=== PATIENT | female | born 1935 | race Caucasian/White ===

== ENCOUNTER 2016-07-29 15:32 | Inpatient (IN) ==
[2016-07-29] MEDS ORDERED: SODIUM CHLORIDE 0.9% 500 ML IV STA (18:36)
--- NOTE | 2016-07-29 18:53 | Emergency Department Note ---
Sarah Nuñez Hilary, am scribing for, and in the presence of, Kris Zuniga MD 18:41. Efrain Nuñez Phillip K, MD, personally performed the services described in this documentation, ascribed by Muna Smith in my presence, and it is both accurate and complete [id number] . Arrival - Arrival ED Nursing Triage Note: PT BECAME DIZZY AND LIGHTHEADED WHILE PLANT SHOPPING AT [employer]. PT STATES SHE DROVE HERSELF HOME. ONCE HOME SHE WALKED OVER TO CHECK HER GLUCOSE AND SHE HAD SYNCOPAL EPISODE, HITTING HER HEAD ON THE FLOOR. VERY SMALL WOUND TO BACK OF HEAD AND SMALL LACERATION TO BOTTOM LIP. PT STATES HER GLUCOSE WAS 161MG/DL AFTER THE FALL. Mode of Arrival: Ambulatory Limitations: No Limitations Source: Patient, RN Notes Reviewed - History of Present Illness Onset (ago): minute(s) <Kris Zuniga - Last Filed: 07/29/16 18:53> <Taurus Ramirez - Last Filed: 07/29/16 21:47> - Arrival Chief Complaint: Syncope Stated Complaint: Fell and hit head after check blood sugar - History of Present Illness HPI Narrative: Pt is a 80 y/o female presenting to the ED with c/o of dizzy and lightheaded- ness onset of earlier this afternoon. She says that she got dizzy and lightheaded while shopping and that after sitting down she fell better and drove herself home, once she was home she went to check her glucose levels and that is when she had a syncopal episode and hit her head on the concrete. Patient denied LOC but said her "vision went black". She confirms nausea, diaphoresis, vision change, laceration on lip, "goose egg" on back of head but denies chest pain, SOB or vomiting. She also said she has had an intermittent TY for 3-4 weeks only on her left side. No other complaints or problems stated in the ED. (Muna Smith) Pt is a 80 y/o female presenting to the ED with c/o of dizzy and lightheaded- ness onset of earlier this afternoon. She says that she got dizzy and lightheaded while shopping and that after sitting down she fell better and drove herself home, once she was home she went to check her glucose levels and that is when she had a syncopal episode and hit her head on the concrete. Patient denied LOC but said her "vision went black". She confirms nausea, diaphoresis, vision change, laceration on lip, "goose egg" on back of head but denies chest pain, SOB or vomiting. She also said she has had an intermittent TY for 3-4 weeks only on her left side. No other complaints or problems stated in the ED. (Kris Zuniga) Allergies/Adverse Reactions: Allergies Allergy/AdvReac Type Severity Reaction Status Date / Time cephalexin [From Keflex] Allergy Unknown/Unable Verified 07/29/16 15:47 to obtain ciprofloxacin [From Cipro] Allergy Unknown/Unable Verified 07/29/16 15:47 to obtain Penicillins Allergy Unknown/Unable Verified 07/29/16 15:47 to obtain Sulfa (Sulfonamide Allergy Unknown/Unable Verified 07/29/16 15:47 Antibiotics) to obtain Home Medications: Home Medications Medication Instructions Recorded Confirmed Type Amitriptyline [Elavil] 50 mg PO BEDTIME 09/14/15 07/29/16 History Aspirin [Ecotrin] 81 mg PO DAILY 09/14/15 07/29/16 History Clopidogrel [Plavix] 75 mg PO DAILY 09/14/15 07/29/16 History Furosemide Tab [Lasix Tab] 40 mg PO DAILY 09/14/15 07/29/16 History Insulin Lispro Prot/Lisp 75/25 10 unit SUBCUT TID PRN 09/14/15 07/29/16 History [HumaLOG Mix 75/25] Losartan Potassium [Cozaar] 100 mg PO DAILY 09/14/15 07/29/16 History Omeprazole 20 mg PO BID 09/14/15 07/29/16 History Potassium Chloride [Klor-Con M20] 20 meq PO DAILY 09/14/15 07/29/16 History Magnesium Oxide [Magnesium] 500 mg PO DAILY 07/29/16 07/29/16 History Review of System - Review of System 12 point system: reviewed and no additional remarkable complaints except as stated - Review of System Constitutional: Present: diaphoresis, weakness Eyes: Present: vision change ("went black") Head/Ears/Nose/Throat: Present: other ("Goose egg" on back of her head) Respiratory: Absent: respiratory distress Cardiovascular: Absent: chest pain Gastrointestinal: Present: nausea. Absent: abdominal pain, vomiting Skin: Present: other (laceration on lip from biting it) <Kris Zuniga - Last Filed: 07/29/16 18:53> Medical,Surgical,& Family Hx - Medical History Cardio: History of: Hypertension Endocrine: History of: Diabetes Mellitus (NIDDM), Dyslipidemia Gastrointestinal: History of: GERD - Surgical History Cardiac Surgeries: Sugical HX of: Femoral-Popliteal Bypass Graft, Cardiac Surgery Abdominal Surgeries: Surgical HX of: Appendectomy, Cholecystectomy Reproductive Surgeries: Surgical HX of;: Hysterectomy - Social History Smoking Status: Never smoker Frequency of Alcohol Use: None Type of Drug Use: None <Kris Zuniga - Last Filed: 07/29/16 18:53> Exam - General General appearance: alert, in no apparent distress - Head Head exam: Present: atraumatic, normocephalic, other (3/3cm hematoma on posterior occiput) - Eye Eye exam: Present: normal appearance, PERRL, EOMI - ENT ENT exam: Present: normal exam, mucous membranes moist, TM's normal bilaterally. Absent: mucous membranes dry - Neck Neck exam: Present: full ROM, trachea midline. Absent: tenderness - Chest Chest inspection: Present: symmetric chest wall rise. Absent: tenderness - Respiratory Respiratory exam: Present: normal lung sounds bilaterally. Absent: respiratory distress - Cardiovascular Cardiovascular exam: Present: regular rate, normal rhythm, normal heart sounds. Absent: murmur, rubs, gallop - Abdominal Exam Abdominal exam: Present: soft, normal bowel sounds. Absent: distention, tenderness - Extremities Exam Extremities exam: Present: full ROM, pedal edema (+1 Pedal edema bilaterally). Absent: tenderness - Back Exam Back exam: Present: full ROM. Absent: tenderness - Neurological Exam Neurological exam: Present: alert, oriented X3, CN II-XII intact. Absent: motor sensory deficit - Psychiatric Psychiatric exam: Present: normal affect, normal mood - Skin Skin exam: Present: warm, dry, intact, normal color, other (Lip Laceration). Absent: rash <Jacob Zunigaip Viviane - Last Filed: 07/29/16 18:53> Vital Signs: Vital Signs Temperature 98.0 F 07/29/16 18:13 Pulse Rate 88 07/29/16 18:30 Respiratory Rate 20 07/29/16 18:30 Blood Pressure 155/85 07/29/16 18:30 O2 Sat by Pulse Oximetry 100 07/29/16 18:30 Course <Kris Zuniga - Last Filed: 07/29/16 18:53> - Reevaluation(s) Time: 20:44 - Consultations Time: 20:46 <Taurus Ramirez - Last Filed: 07/29/16 21:47> - Reevaluation(s) Reevaluation #1: Patient reevaluated states she feels little bit better but still feels little lightheaded. Based on her story the symptoms been going on for last couple weeks getting worse today she has noted what happened she has found herself on the floor lately she has been having where she gets double vision lightheaded sweaty nauseated and today she actually passed out (Taurus Ramirez) - Consultations Consultation #1: Spoke to hospitalist will admit patient (Taurus Ramirez) Results - Labs CBC & BMP: 07/29/16 18:16 07/29/16 18:16 <Taurus Ramirez - Last Filed: 07/29/16 21:47> Disposition <Kris Zuniga - Last Filed: 07/29/16 18:53> Case discussed with: patient Time of Disposition: 21:47 <Taurus Ramirez - Last Filed: 07/29/16 21:47> Clinical Impression: Dehydration, Syncope and collapse, TIA (transient ischemic attack), Scalp contusion Disposition: Still a Patient Condition: Stable
--- NOTE | 2016-07-29 18:54 | CT Report ---
CT head/brain wo con Indication: 80-year-old female, syncope. CT BRAIN WITHOUT CONTRAST DLP: 1012 mGy*cm. One or more of the following dose reduction techniques was used: Automated exposure control, adjustment of the mA and/or kV according the patient size, or use of iterative reconstruction techniques. Comparison: 10/09/2013. Date of admission: 07/29/2016. Technique: Axial noncontrast CT images of the brain were obtained. 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 Benign basal ganglia calcifications are present. Nguyen-white junction is otherwise maintained throughout. No acute intracranial hemorrhage. No mass or mass effect. Mild patchy periventricular white matter hypodensity is present. Scalp swelling right posterior parietal region. No underlying fracture. Visualized sinuses and mastoid air cells are clear. Impression: 1. No acute intracranial pathology. 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 Mild chronic small vessel ischemic change. 2. Right posterior parietal scalp swelling. PROCEDURE INTERPRETED AT [facility] DEPARTMENT OF RADIOLOGY Final Report Signed by: Duane Way M.D.
--- NOTE | 2016-07-29 18:57 | XRay Report ---
XR chest 1V portable Indication: Shortness of breath. Chest one view: Comparison 10/09/2013. Chronic elevation right hemidiaphragm, bibasilar scarring, normal heart size and mediastinal contour and median sternotomy wires are all stable. No new infiltrates are shown. Pleural spaces remain clear. Impression: No acute cardiopulmonary disease. Chronic changes as described. PROCEDURE INTERPRETED AT [facility] DEPARTMENT OF RADIOLOGY Final Report Signed by: Duane Way M.D.
--- NOTE | 2016-07-29 19:08 | EKG Report ---
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
[2016-07-29 19:17] LABS: Basophils # 0.1 10*3/uL (0.0-0.2); Basophils % 0.9 % (0.0-0.8); Eosinophils # 0.1 10*3/uL (0.0-0.87); Eosinophils % 0.7 % (0.00-10.9); Hematocrit 38.3 VOL% (35.7-47.0); Hemoglobin 12.4 GM/DL (12.0-16.0); Immature Granulocytes % 0.5 %; Immature Granulocytes Absolute 0.04 #; Lymphocytes # 1.3 10*3/uL (1.4-4.0); Lymphocytes % 17.7 % (21.3-54.2); Mean Corpuscular HGB Conc 32.4 GM/DL (32-36); Mean Corpuscular Hemoglobin 27 PG (27-34); Mean Corpuscular Volume 82.2 FL (87-102); Mean Platelet Volume 11.5 FL (9.6-12.0); Monocytes # 0.6 10*3/uL (0.11-0.8); Monocytes % 7.9 % (1.7-12.7); Neutrophils # 5.4 10*3/uL (1.4-7.4); Neutrophils % 72.3 % (38.7-73.9); Platelet Count 224 T/CUMM (130-400); Red Blood Count 4.66 MC/CUMM (3.8-5.5); White Blood Count 7.5 T/CUMM (4-12)
[2016-07-29 19:20] LABS: Alanine Aminotransferase 21 U/L (13-56); Albumin 3.6 G/DL (3.4-5.0); Alkaline Phosphatase 144 U/L (45-117); Aspartate Amino Transferase 21 U/L (0-37); Bilirubin,Total < 0.39 MG/DL (0.2-1.0); Blood Urea Nitrogen 23 MG/DL (7-18); Calcium 8.5 MG/DL (8.5-10.1); Glucose 249 MG/DL (74-106); Magnesium 2.3 MG/DL (1.8-2.4); Osmolality,Calculated 286.7 MOS/KG (273-304); Potassium 4.2 MMOL/L (3.5-5.1); Sodium 138 MMOL/L (136-145); Total Protein 7.1 G/DL (6.4-8.3)
[2016-07-29 20:05] LABS: Apearance,Urine Slightly Hazy (Clear); Bilirubin,Urine Negative (Negative); Blood, Urine Negative (Negative); Glucose,Urine (UA) 50 mg/dL (Negative); Granular Casts,Urine 8 /LPF (0-1); Hyaline Casts,Urine 61 /LPF (0-3); Ketones,Urine Negative (Negative); Mucus,Urine Occasional /LPF (Occasional); Nitrite,Urine Negative (Negative); Protein,Urine Negative; Squamous Epithelial Cell,Urine Occasional /HPF (0-10); Urine Color Yellow (Yellow); Urine Specific Gravity 1.018 (1.001-1.035); Urine Urobilinogen < 2.0 EU/DL (0.2-1.0); WBC,Urine 1 /HPF (0-6)
[2016-07-30] MEDS ORDERED: GLUCAGON 1 MG VIAL IM PRN (00:26)
[2016-07-30] MEDS ORDERED: ONDANSETRON 4 MG/2 ML VIAL IV PRN (00:26)
[2016-07-30] MEDS ORDERED: MORPHINE 2 MG/1 ML SYRINGE IV PRN (00:26)
[2016-07-30] MEDS ORDERED: DEXTROSE 50% 25 GM/50 ML VIAL IV PRN (00:26)
[2016-07-30] MEDS ORDERED: INSULIN LISPRO PROTAMINE/LISPRO 75/25 100 UNIT/ML SUBCUT PRN (00:26)
[2016-07-30] MEDS ORDERED: ACETAMINOPHEN 325 MG TABLET PO PRN (00:26)
[2016-07-30 04:44] LABS: Basophils # 0.1 10*3/uL (0.0-0.2); Basophils % 1.1 % (0.0-0.8); Eosinophils # 0.2 10*3/uL (0.0-0.87); Eosinophils % 2.7 % (0.00-10.9); Hematocrit 36.2 VOL% (35.7-47.0); Hemoglobin 11.4 GM/DL (12.0-16.0); Immature Granulocytes % 0.3 %; Immature Granulocytes Absolute 0.02 #; Lymphocytes # 1.8 10*3/uL (1.4-4.0); Lymphocytes % 28.1 % (21.3-54.2); Mean Corpuscular HGB Conc 31.5 GM/DL (32-36); Mean Corpuscular Hemoglobin 27 PG (27-34); Mean Corpuscular Volume 85.6 FL (87-102); Mean Platelet Volume 10.9 FL (9.6-12.0); Monocytes # 0.8 10*3/uL (0.11-0.8); Monocytes % 13.2 % (1.7-12.7); Neutrophils # 3.5 10*3/uL (1.4-7.4); Neutrophils % 54.6 % (38.7-73.9); Platelet Count 192 T/CUMM (130-400); Red Blood Count 4.23 MC/CUMM (3.8-5.5); Red Cell Distribution Width 14.8 % (9.3-17.3); White Blood Count 6.4 T/CUMM (4-12)
[2016-07-30 05:06] LABS: Troponin I Only < 0.015 NG/ML (0.00-0.045)
[2016-07-30 05:13] LABS: Alanine Aminotransferase 16 U/L (13-56); Albumin 3.1 G/DL (3.4-5.0); Alkaline Phosphatase 117 U/L (45-117); Aspartate Amino Transferase 19 U/L (0-37); Bilirubin,Total < 0.39 MG/DL (0.2-1.0); Blood Urea Nitrogen 22 MG/DL (7-18); Calcium 8.4 MG/DL (8.5-10.1); Cholesterol 210 MG/DL (50-200); Glucose 149 MG/DL (74-106); HDL Cholesterol 58 MG/DL (40-60); Magnesium 2.3 MG/DL (1.8-2.4); Osmolality,Calculated 288.1 MOS/KG (273-304); Potassium 4.4 MMOL/L (3.5-5.1); Risk Ratio 3.62; Sodium 142 MMOL/L (136-145); Triglycerides 165 MG/DL (2-150)
[2016-07-30] MEDS: SODIUM CHLORIDE 0.9% 1,000 ML IV SCH (06:42)
--- NOTE | 2016-07-30 07:54 | XRay Report ---
Exam: Chest 2 views Date: July 30, 2016 at 7:21 AM Comparison: Chest one view portable July 29, 2016 Reason: Shortness of breath Findings: The cardiac silhouette is normal in size, but the patient is status post sternotomy. There is also persistent mild elevation of the right hemidiaphragm. There is minimal atelectasis or scarring at the lung bases, but no pneumothorax or pleural effusion is identified. No acute osseous process is seen. Impression: Persistent mild elevation of the right hemidiaphragm and minimal atelectasis or scarring at the lung bases. PROCEDURE INTERPRETED AT [facility] DEPARTMENT OF RADIOLOGY Final Report Signed by: Dr. Ines Rowell
--- NOTE | 2016-07-30 08:15 | Internal Med History&Physical ---
Assessment and Plan (1) Syncope and collapse Status: Acute Assessment and plan: 80-year-old female admitted to acute care * Syncope. Etiology is unclear. Probably related to orthostatic hypotension and dehydration. Will check orthostatic vital signs. We will start her on IV fluids. Will check echocardiogram and carotid ultrasound. CT brain was negative * Coronary artery disease. Stable and asymptomatic * Diabetes. Will check Accu-Cheks and keep her on a sliding scale * Peripheral vascular disease. Stable * Will watch her closely. Discussed with patient Current Visit: Yes (2) Diabetes Status: Acute Current Visit: Yes (3) Hypertension Status: Acute Current Visit: Yes (4) Peripheral vascular disease Status: Acute Current Visit: Yes (5) Coronary artery disease Status: Acute Current Visit: Yes History of Present Illness Chief complaint: Syncopal episode History of present illness: Ms. Jose is a 80 year old female with history of multiple medical problems including coronary artery disease, diabetes, hypertension, peripheral vascular disease, history of osteomyelitis who presented to the emergency room after a syncopal episode. Patient was shopping at a [employer] when she got extremely dizzy and lightheaded. She drove herself home. She went to check her blood glucose and had a syncopal episode. She hit her head on the floor. She had a small wound to the back of her head. He also suffered a laceration to the bottom lip. Patient was brought to the emergency room where she was evaluated. She is also complaining of headache on the left side of the head which has been going on for a few weeks off and on. She denies any previous syncopal episodes. She has taken occasional extra Lasix for fluid in her legs. She gets dizzy when she bends over and gets up. Denies any with dizziness when she is lying or sitting. She denies any nausea vomiting or diarrhea. She denies any fever or chills. Patient lives alone at home. She is a . No history of smoking or alcohol use Home Medications Medication Instructions Recorded Confirmed Type Amitriptyline [Elavil] 50 mg PO BEDTIME 09/14/15 07/29/16 History Aspirin [Ecotrin] 81 mg PO DAILY 09/14/15 07/29/16 History Clopidogrel [Plavix] 75 mg PO DAILY 09/14/15 07/29/16 History Furosemide Tab [Lasix Tab] 40 mg PO DAILY 09/14/15 07/29/16 History Insulin Lispro Prot/Lisp 10 unit SUBCUT TID PRN 09/14/15 07/29/16 History [HumaLOG Mix ] Losartan Potassium [Cozaar] 100 mg PO DAILY 09/14/15 07/29/16 History Omeprazole 20 mg PO BID 09/14/15 07/29/16 History Potassium Chloride [Klor-Con M20] 20 meq PO DAILY 09/14/15 07/29/16 History Magnesium Oxide [Magnesium] 500 mg PO DAILY 07/29/16 07/29/16 History Allergies Allergy/AdvReac Type Severity Reaction Status Date / Time cephalexin [From Keflex] Allergy Unknown/Unable Verified 07/29/16 15:47 to obtain ciprofloxacin [From Cipro] Allergy Unknown/Unable Verified 07/29/16 15:47 to obtain Penicillins Allergy Unknown/Unable Verified 07/29/16 15:47 to obtain Sulfa (Sulfonamide Allergy Unknown/Unable Verified 07/29/16 15:47 Antibiotics) to obtain Medical,Surgical,& Family Hx - Medical History Cardio: History of: CAD, Hypertension, PVD Neurology: History of: Peripheral Neuropathy Endocrine: History of: Diabetes Mellitus (NIDDM), Dyslipidemia Gastrointestinal: History of: GERD - Surgical History Cardiac Surgeries: Sugical HX of: Femoral-Popliteal Bypass Graft, Cardiac Surgery (CABG 1990) Abdominal Surgeries: Surgical HX of: Appendectomy, Cholecystectomy Reproductive Surgeries: Surgical HX of;: Hysterectomy - Social History Smoking Status: Never smoker Frequency of Alcohol Use: None Type of Drug Use: None Marital Status: Lives With:: Alone Functional capacity: independent ambulation (CABG 93) 12 point system: reviewed and no additional remarkable complaints except as stated (As mentioned in HPI) Exam - Constitutional Vitals: Period Temp Pulse Resp BP Sys/Cantu Pulse Ox Last 24 Hr 97.2 F-98.3 F 64-74 16-18 116-151/58-85 94-98 Exam: Examination: GENERAL: NAD. HEENT: PERRLA. EOMI. Mucous membranes are moist. Laceration on the lower lip. Small hematoma on the posterior occipital area NECK: Neck is supple. No JVD. No carotid bruit. No thyromegaly. CVS: Regular rate and rhythm. S1 and S2 are normal. RESPIRATORY: Lungs are clear. No rales or rhonchi. ABDOMEN: Soft and nontender. Bowel sounds are present. No hepatosplenomegaly. EXT: No edema. Peripheral pulses are present. Right second toe is overlapping first toe. Healing wound on the fourth toe TRANSFORMATION ANALYST: Patient is awake, alert and oriented to time place and person. Cranial nerves II through XII are grossly intact. Motor strength is 5 over 5 both upper and lower extremities. SKIN: Warm and dry. MSK: No obvious deformity. Results - Labs CBC & BMP: 07/30/16 04:35 07/30/16 04:35 Lab Results: I have reviewed the past 24 hour labs
[2016-07-30] MEDS ORDERED: PANTOPRAZOLE 40 MG TABLET PO SCH (09:00)
--- NOTE | 2016-07-30 09:17 | Ultrasound Report ---
Carotid artery ultrasound Indication: Syncope, vertigo Comparison: None available Color Doppler flow and spectral analysis was performed. Findings: Small amount of atherosclerotic plaque is present in both proximal internal carotid arteries. The peak systolic velocity in the right is 48 cm/s . Ratio of flow is 0.7. The peak systolic velocity in the left is 89 cm/s . Ratio of flow is 0.47 Bilateral antegrade vertebral flow is seen. Impression: No evidence of hemodynamically significant stenosis is seen, 0-49% estimated stenosis. Consensus conference on the carotid ultrasound criteria used. Ultrasound images were captured and stored. PROCEDURE INTERPRETED AT [facility] DEPARTMENT OF RADIOLOGY Final Report Signed by: Dr. Jorge Rose
--- NOTE | 2016-07-30 09:25 | XRay Report ---
Sacrum and coccyx AP lateral films Indication: Pain after falling injury Findings: There is suggestion of fracture of the fourth sacral segment with minimal displacement. No other fractures are seen. Sacroiliac joint alignment appears normal. Impression: Suggestion of S4 fracture with minimal displacement. PROCEDURE INTERPRETED AT [facility] DEPARTMENT OF RADIOLOGY Final Report Signed by: Dr. Jorge Rose
[2016-07-30] MEDS: ASPIRIN EC 81 MG TABLET PO SCH (09:49)
[2016-07-30] MEDS: MAGNESIUM GLUCONATE 500 MG TABLET PO SCH (09:49)
[2016-07-30] MEDS: ENOXAPARIN 40 MG/0.4 ML SYRINGE SUBCUT SCH (09:50)
[2016-07-30] MEDS: LOSARTAN 50 MG TABLET PO SCH (09:50)
[2016-07-30] MEDS: CLOPIDOGREL 75 MG TABLET PO SCH (09:50)
[2016-07-30] MEDS: POTASSIUM CHLORIDE 20 MEQ TABLET PO SCH (09:50)
[2016-07-30] MEDS: DOCUSATE SODIUM 100 MG CAPSULE PO SCH ×2 (09:50→21:50)
[2016-07-30] MEDS: PANTOPRAZOLE 40 MG TABLET PO SCH ×2 (09:50→21:50)
[2016-07-30] MEDS: FUROSEMIDE 40 MG TABLET PO SCH (10:40)
[2016-07-30] MEDS: INSULIN REGULAR 100 UNIT/ML SUBCUT SCH ×4 (10:53→21:50)
--- NOTE | 2016-07-30 15:10 | Neurology Consult Note ---
History of Present Illness History of present illness: Ms. Jose is a 80 year old right-handed lady with past medical history significant for multiple medical problems including coronary artery disease, diabetes, hypertension, peripheral vascular disease, history of osteomyelitis who presented to the emergency room after a syncopal episode. Patient was shopping at a coop when she got extremely dizzy and lightheaded. She drove herself home. She went to check her blood glucose and had a syncopal episode. She hit her head on the floor. She had a small wound to the back of her head. He also suffered a laceration to the bottom lip. Patient was brought to the emergency room where she was evaluated. She is also complaining of headache on the left side of the head which has been going on for a few months off and on. Headache frequency is 1-2 per week. That lasted for few minutes at a time. It is sharp shooting pain. She denies any previous syncopal episodes. She has taken occasional extra Lasix for fluid in her legs. She gets dizzy when she bends over and gets up. Denies any with dizziness when she is lying or sitting. She denies any nausea vomiting or diarrhea. She denies any fever or chills. CT head revealed old lacunar infarct in the right internal capsule. Carotid ultrasound revealed no significant pathology. Home Medications Medication Instructions Recorded Confirmed Type Amitriptyline [Elavil] 50 mg PO BEDTIME 09/14/15 07/29/16 History Aspirin [Ecotrin] 81 mg PO DAILY 09/14/15 07/29/16 History Clopidogrel [Plavix] 75 mg PO DAILY 09/14/15 07/29/16 History Furosemide Tab [Lasix Tab] 40 mg PO DAILY 09/14/15 07/29/16 History Insulin Lispro Prot/Lisp 75/25 10 unit SUBCUT TID PRN 09/14/15 07/29/16 History [HumaLOG Mix 75/25] Losartan Potassium [Cozaar] 100 mg PO DAILY 09/14/15 07/29/16 History Omeprazole 20 mg PO BID 09/14/15 07/29/16 History Potassium Chloride [Klor-Con M20] 20 meq PO DAILY 09/14/15 07/29/16 History Magnesium Oxide [Magnesium] 500 mg PO DAILY 07/29/16 07/29/16 History Allergies Allergy/AdvReac Type Severity Reaction Status Date / Time cephalexin [From Keflex] Allergy Unknown/Unable Verified 07/29/16 15:47 to obtain ciprofloxacin [From Cipro] Allergy Unknown/Unable Verified 07/29/16 15:47 to obtain Penicillins Allergy Unknown/Unable Verified 07/29/16 15:47 to obtain Sulfa (Sulfonamide Allergy Unknown/Unable Verified 07/29/16 15:47 Antibiotics) to obtain 12 point system: reviewed and no additional remarkable complaints except as stated Medical,Surgical,& Family Hx - Medical History Cardio: History of: CAD, Hypertension, PVD Neurology: History of: Peripheral Neuropathy Endocrine: History of: Diabetes Mellitus (NIDDM), Dyslipidemia Gastrointestinal: History of: GERD - Surgical History Cardiac Surgeries: Sugical HX of: Femoral-Popliteal Bypass Graft, Cardiac Surgery (CABG 1990) Abdominal Surgeries: Surgical HX of: Appendectomy, Cholecystectomy Reproductive Surgeries: Surgical HX of;: Hysterectomy - Social History Smoking Status: Never smoker Frequency of Alcohol Use: None Type of Drug Use: None Exam - Constitutional Vitals: Period Temp Pulse Resp BP Sys/Cantu Pulse Ox Last 24 Hr 97.0 F-98.3 F 64-89 16-18 107-151/55-87 94-99 Exam: GENERAL: Patient is in no acute distress. NECK: Neck is supple. There is no JVD. No carotid bruits present. No thyroid masses. CVS: First and second heart sounds are normal. There is no S3 present. Regular rate and rhythm. RESPIRATORY: Lungs are clear to auscultation without any rales or rhonchi. ABDOMEN: Soft and non-tender. Bowel sounds are present. There is no hepatosplenomegaly. EXT: There is no palpable edema. Peripheral pulses are present. Skin: No rashes Central Nervous system: General: Alert, awake and Oriented x 3 Speech: Fluent Comprehension: Intact and normal Facial expressions: Normal Cranial Nerves: CN1/Olfactory: Normal CN II/ Optic: Normal, Visual Rae unreliable CN III, and : KIM & EOMI CN V: Normal & intact CN VII: face is symmetric CNVIII: Normal CN XI/X/XI/XII: Intact and Normal Motor: Bulk and Tone is normal. Strength in the right 5/5 Strength in the left 5/5 Sensory: Grossly intact for all the modalities of PP, LT and temp sense Reflexes: 1+ and symmetrical Cerebellar function: Normal finger to nose and heel to lunsford testing. Toes: Equivocal Gait: Slightly broad-based gait Results - Labs CBC & BMP: 07/30/16 04:35 07/30/16 04:35 Assessment and Plan (1) New onset headache Status: Acute Assessment and plan: MRI of the brain without Check CRP and ESR Current Visit: Yes (2) Syncope and collapse Status: Acute Assessment and plan: This is likely due to orthostatic hypotension. Watchful observation for now and agree with IV fluids EEG Current Visit: Yes
--- NOTE | 2016-07-30 15:37 | Physician Query Form ---
CLICK EDIT DOCUMENT TO SELECT QUERY ANSWER --> OK --> SIGN Mary Jane Blanco RN Clinical Environmental Change Analyst W) [phone] (f) [phone] [email or web address] PROVIDERS: Make your selection(s) from the choices in EACH section by typing an "x" and enter comments in the comment section. Please use your independent medical judgment in providing your response. This request does not imply that any particular answer is desired or expected. CLINICAL INDICATORS: (Providers should not edit this section) Based on lab results of creatinine on admission of 1.80 with a GFR of 24 and decreased to 1.20. Pt. treated with IV fluids. Clarify which of the following most accurately represents the patient's renal status: ( ) Acute kidney injury (non-traumatic) ( ) Acute renal failure ( ) Acute renal failure with underlying Chronic Kidney Disease (CKD) - please provide stage below ( ) CKD - please provide stage below (x ) Other, please specify: Dehydration and volume depletion ( ) Clinically unable to determine Chronic Kidney Disease Stages Source: National Kidney Disease Foundation ( ) Stage I (eGFR > or = 90) ( ) Stage II (eGFR 60 - 89) ( ) Stage III (eGFR 30 - 59) ( ) Stage IV (eGFR 15 - 29) ( ) Stage V (eGFR < 15 or dialysis) COMMENTS: Use of terms such as suspected, likely, or probable (associated with a specific diagnosis that is being evaluated, monitored, or treated as if it exists) are acceptable and can be restated in the discharge summary if not ruled out. MTDD
--- NOTE | 2016-07-30 16:12 | ECHO Report ---
Kiki Jose Exam Date: 07/30/2016 09:40 Referring Physician: Technologist: Sanam Payton Age: 80 Ht (in): 61 Wt (lb): 142 Gender: F Exam Location: [facility] Echo Indications: CAD, HTN, Dehydration, syncope, TIA, Diabetes BP: 116 / 58 HR: 74 Rhythm: Sinus Technical Quality: Technically difficult study IMPRESSIONS Technically difficult study .EF 60 %. Grade I/IV diastolic dysfunction (abnormal relaxation filling pattern), normal to mildly elevated filling pressures. Normal right ventricular size. Moderately increased right atrial size. Moderately increased left atrial size. Mitral valve sclerosis. Mild mitral valve regurgitation. Aortic valve sclerosisTrace aortic valve regurgitation. [id number] tricuspid valve regurgitation. [id number]. Pulmonic valve not well visualized. No pericardial effusion. Normal size aortic root and proximal ascending aorta. MEASUREMENTS (Male / Female) Normal Values 2D ECHO LV Diastolic Diameter PLAX 3.3 cm 4.2 - 5.9 / 3.9 - 5.3 cm LV Systolic Diameter PLAX 2.3 cm LV Fractional Shortening PLAX 29.1 % IVS Diastolic Thickness 1.8 cm 0.6 - 1.0 / 0.6 - 0.9 cm LVPW Diastolic Thickness 1.3 cm 0.6 - 1.0 / 0.6 - 0.9 cm RV Internal Dim ED PLAX 2.7 cm Aortic Root Diameter 2.1 cm LA Systolic Diameter LX 3.7 cm 3.0 - 4.0 / 2.7 - 3.8 cm DOPPLER TR Peak Velocity 239.0 cm/s TR Peak Gradient 22.8 mmHg FINDINGS Left Ventricle EF 60 %. Grade I/IV diastolic dysfunction (abnormal relaxation filling pattern), normal to mildly elevated filling pressures. Right Ventricle Normal right ventricular size. Right Atrium Moderately increased right atrial size. Left Atrium Moderately increased left atrial size. Mitral Valve mitral valve sclerosis. Mild mitral valve regurgitation. Aortic Valve Aortic valve sclerosisTrace aortic valve regurgitation. . Tricuspid Valve Morphologically normal tricuspid valve. [id number] tricuspid valve regurgitation. [id number]. Pulmonic Valve Pulmonic valve not well visualized. Pericardium No pericardial effusion. Aorta Normal size aortic root and proximal ascending aorta. Ismael Peñaloza (Electronically Signed) Final Date: 30 July 2016 16:11
--- NOTE | 2016-07-30 16:54 | Magnetic Resonance Report ---
MRI brain without contrast Indication: Syncope Comparison: CT 29 July 2016 Technique: Axial sagittal and coronal imaging of the brain is performed without contrast. T1, T2, FLAIR and diffusion weighted sequences are performed. Findings: No evidence of restricted diffusion seen. No evidence of intracranial hemorrhage, mass, mass effect or midline shift is seen. There is moderate diffuse cerebral atrophy. There small areas of white matter T2 signal hyperintensity present, mostly periventricular in location. Remaining brain parenchyma has normal signal and differentiation. The ventricles and cisterns are appropriate in caliber. Posterior fossa, mid brain and pituitary gland appear within normal limits. Subgaleal fluid collection is seen posteriorly to the right of midline. No other evidence of cranial or skull base abnormality seen. Impression: No evidence of acute infarct or acute process. Few foci of white matter T2 signal hyperintensity, likely related to chronic microvascular changes. Subgaleal fluid collection posteriorly to the right of midline likely resolving scalp hematoma. PROCEDURE INTERPRETED AT [facility] DEPARTMENT OF RADIOLOGY Final Report Signed by: Dr. Jorge Rose
[2016-07-30] MEDS: AMITRIPTYLINE 50 MG TABLET PO SCH (21:50)
[2016-07-31] MEDS: SODIUM CHLORIDE 0.9% 1,000 ML IV SCH (02:15)
[2016-07-31 03:34] LABS: Basophils # 0.1 10*3/uL (0.0-0.2); Basophils % 1.7 % (0.0-0.8); Eosinophils # 0.2 10*3/uL (0.0-0.87); Eosinophils % 4.3 % (0.00-10.9); Hematocrit 35.1 VOL% (35.7-47.0); Hemoglobin 10.8 GM/DL (12.0-16.0); Immature Granulocytes % 0.2 %; Immature Granulocytes Absolute 0.01 #; Lymphocytes # 1.5 10*3/uL (1.4-4.0); Lymphocytes % 36.7 % (21.3-54.2); Mean Corpuscular HGB Conc 30.8 GM/DL (32-36); Mean Corpuscular Hemoglobin 27 PG (27-34); Mean Platelet Volume 11.1 FL (9.6-12.0); Monocytes # 0.5 10*3/uL (0.11-0.8); Monocytes % 12.9 % (1.7-12.7); Neutrophils # 1.8 10*3/uL (1.4-7.4); Neutrophils % 44.2 % (38.7-73.9); Platelet Count 185 T/CUMM (130-400); Red Blood Count 4.08 MC/CUMM (3.8-5.5); Red Cell Distribution Width 14.6 % (9.3-17.3); White Blood Count 4.2 T/CUMM (4-12)
[2016-07-31 04:09] LABS: Osmolality,Calculated 288.1 MOS/KG (273-304); Potassium 4.7 MMOL/L (3.5-5.1)
--- NOTE | 2016-07-31 08:44 | Internal Med Progress Note ---
Assessment and Plan (1) Syncope and collapse Status: Acute Assessment and plan: 80-year-old female admitted to acute care * Syncope. Workup is negative so far. MRI of the brain did not show any acute ischemia. Her carotid ultrasound and echocardiogram was okay. Her renal function is back to normal. She is rehydrated. Will DC IV fluids. She bit her lips while she was out. Will check an EEG * Coronary artery disease. Stable and asymptomatic * Diabetes. Will check Accu-Cheks and keep her on a sliding scale * Peripheral vascular disease. Stable * Discussed with patient and her son Current Visit: Yes (2) Diabetes Status: Acute Current Visit: Yes (3) Hypertension Status: Acute Current Visit: Yes (4) Peripheral vascular disease Status: Acute Current Visit: Yes (5) Coronary artery disease Status: Acute Current Visit: Yes Internal Medicine - PN: Subj Interval history: She is feeling better this morning. She is not dizzy or lightheaded. No chest pain or shortness of breath. Exam (Progress Note) - Constitutional Vitals: Period Temp Pulse Resp BP Sys/Cantu Pulse Ox Last 24 Hr 96.4 F-97.7 F 69-89 16-20 107-167/55-87 96-100 Exam: Examination: GENERAL: NAD. HEENT: PERRLA. EOMI. NECK: Neck is supple. CVS: Regular rate and rhythm. S1 and S2 are normal. RESPIRATORY: Lungs are clear. ABDOMEN: Soft and nontender. EXT: No edema SOUR BLEACHING PLEATER: Nonfocal SKIN: Warm and dry. MSK: No obvious deformity. Results - Labs CBC & BMP: 07/31/16 03:17 07/31/16 03:17 Lab Results: I have reviewed the past 24 hour labs
[2016-07-31] MEDS: INSULIN REGULAR 100 UNIT/ML SUBCUT SCH ×4 (09:47→21:53)
[2016-07-31] MEDS: LOSARTAN 50 MG TABLET PO SCH (09:48)
[2016-07-31] MEDS: DOCUSATE SODIUM 100 MG CAPSULE PO SCH ×2 (09:48→22:44)
[2016-07-31] MEDS: ASPIRIN EC 81 MG TABLET PO SCH (09:48)
[2016-07-31] MEDS: CLOPIDOGREL 75 MG TABLET PO SCH (09:49)
[2016-07-31] MEDS: MAGNESIUM GLUCONATE 500 MG TABLET PO SCH (09:49)
[2016-07-31] MEDS: POTASSIUM CHLORIDE 20 MEQ TABLET PO SCH (09:49)
[2016-07-31] MEDS: PANTOPRAZOLE 40 MG TABLET PO SCH ×2 (09:50→22:44)
[2016-07-31] MEDS: FUROSEMIDE 40 MG TABLET PO SCH (09:54)
[2016-07-31] MEDS: ENOXAPARIN 40 MG/0.4 ML SYRINGE SUBCUT SCH (09:54)
[2016-07-31 14:42] LABS: Apearance,Urine CLEAR (Clear); Bilirubin,Urine Negative (Negative); Blood, Urine Negative (Negative); Glucose,Urine (UA) Negative (Negative); Ketones,Urine Negative (Negative); Nitrite,Urine Negative (Negative); Protein,Urine Negative; Squamous Epithelial Cell,Urine Occasional /HPF (0-10); Urine Color Straw (Yellow); Urine Specific Gravity 1.005 (1.001-1.035); Urine Urobilinogen < 2.0 EU/DL (0.2-1.0); WBC,Urine <1 /HPF (0-6)
--- NOTE | 2016-07-31 18:02 | Neurology Progress Note ---
Neurology - PN : Subjective Interval history: Patient seems to be doing really well. No new problems reported. No more syncopal/near syncopal episode reported. EEG preliminary report is negative. MRI is negative. CRP is 1.06 and ESR is 40 which is borderline high. Patient is feeling better so we will hold off to any further intervention at this time. Will reevaluate for temporal arteritis as an outpatient and might scheduled temporal artery biopsy as well. Exam (Progress Note) - Constitutional Vitals: Period Temp Pulse Resp BP Sys/Cantu Pulse Ox Last 24 Hr 96.4 F-98.6 F 67-93 16-18 128-167/57-93 93-100 Exam: GENERAL: Patient is in no acute distress. NECK: Neck is supple. There is no JVD. No carotid bruits present. No thyroid masses. CVS: First and second heart sounds are normal. There is no S3 present. Regular rate and rhythm. RESPIRATORY: Lungs are clear to auscultation without any rales or rhonchi. ABDOMEN: Soft and non-tender. Bowel sounds are present. There is no hepatosplenomegaly. EXT: There is no palpable edema. Peripheral pulses are present. Skin: No rashes Central Nervous system: General: Alert, awake and Oriented x 3 Speech: Fluent Comprehension: Intact and normal Facial expressions: Normal Cranial Nerves: CN1/Olfactory: Normal CN II/ Optic: Normal, Visual Rae unreliable CN III, and : KIM & EOMI CN V: Normal & intact CN VII: face is symmetric CNVIII: Normal CN XI/X/XI/XII: Intact and Normal Motor: Bulk and Tone is normal. Strength in the right 5/5 Strength in the left 5/5 Sensory: Grossly intact for all the modalities of PP, LT and temp sense Reflexes: 1+ and symmetrical Cerebellar function: Normal finger to nose and heel to lunsford testing. Toes: Equivocal Gait: Slightly broad-based gait Results - Labs CBC & BMP: 07/31/16 03:17 07/31/16 03:17 Assessment and Plan (1) New onset headache Status: Acute Assessment and plan: Stable at this time. We will make further decision at the follow-up visit. Current Visit: Yes (2) Syncope and collapse Status: Acute Assessment and plan: Continue supportive management. No further intervention from neuro standpoint Sign off call as needed Current Visit: Yes Specialty Discharge - Follow Up or Referrals Follow up with: Jeferson Dudley MD [Physician] - 2 Weeks
--- NOTE | 2016-07-31 18:46 | Orthopedic Consult Note ---
History of Present Illness Chief complaint: S4 fracture History of present illness: Ms. Jose is a 80 year old female who fell 2 days ago after a syncopal episode. She is complaining of pain towards her backside. She also sustained a laceration to her head. She has been admitted for syncopal workup. She denies any numbness or tingling. She has been able to ambulate in the room. Home Medications Medication Instructions Recorded Confirmed Type Amitriptyline [Elavil] 50 mg PO BEDTIME 09/14/15 07/29/16 History Aspirin [Ecotrin] 81 mg PO DAILY 09/14/15 07/29/16 History Clopidogrel [Plavix] 75 mg PO DAILY 09/14/15 07/29/16 History Furosemide Tab [Lasix Tab] 40 mg PO DAILY 09/14/15 07/29/16 History Insulin Lispro Prot/Lisp 75/25 10 unit SUBCUT TID PRN 09/14/15 07/29/16 History [HumaLOG Mix 75/25] Losartan Potassium [Cozaar] 100 mg PO DAILY 09/14/15 07/29/16 History Omeprazole 20 mg PO BID 09/14/15 07/29/16 History Potassium Chloride [Klor-Con M20] 20 meq PO DAILY 09/14/15 07/29/16 History Magnesium Oxide [Magnesium] 500 mg PO DAILY 07/29/16 07/29/16 History Allergies Allergy/AdvReac Type Severity Reaction Status Date / Time cephalexin [From Keflex] Allergy Unknown/Unable Verified 07/29/16 15:47 to obtain ciprofloxacin [From Cipro] Allergy Unknown/Unable Verified 07/29/16 15:47 to obtain Penicillins Allergy Unknown/Unable Verified 07/29/16 15:47 to obtain Sulfa (Sulfonamide Allergy Unknown/Unable Verified 07/29/16 15:47 Antibiotics) to obtain 12 point system: reviewed and no additional remarkable complaints except as stated Medical,Surgical,& Family Hx - Medical History Cardio: History of: CAD, Hypertension, PVD Neurology: History of: Peripheral Neuropathy Endocrine: History of: Diabetes Mellitus (NIDDM), Dyslipidemia Gastrointestinal: History of: GERD - Surgical History Cardiac Surgeries: Sugical HX of: Femoral-Popliteal Bypass Graft, Cardiac Surgery (CABG 1990) Abdominal Surgeries: Surgical HX of: Appendectomy, Cholecystectomy Reproductive Surgeries: Surgical HX of;: Hysterectomy - Social History Smoking Status: Never smoker Frequency of Alcohol Use: None Type of Drug Use: None Exam - Constitutional Vitals: Period Temp Pulse Resp BP Sys/Cantu Pulse Ox Last 24 Hr 96.4 F-98.6 F 67-98 16-18 127-167/57-93 93-100 Alert and oriented. She is tender over the posterior aspect of her sacrum. There is no step-off. Bilateral lower extremities show no pain with range of motion of her hips. She is nontender about her legs. Skin, sensation murmurs pulses grossly intact. She has severe bilateral hallux valgus. Radiographs from [facility] show a subtle S4 fracture. Impression: Minimally displaced S4 fracture Plan: Recommend sitting on soft surfaces such as a pillow or doughnut. She can be weightbearing as tolerated. Results - Labs CBC & BMP: 07/31/16 03:17 07/31/16 03:17 Specialty Discharge - Follow Up or Referrals Follow up with: Jeferson Dudley MD [Physician] - 2 Weeks
[2016-07-31] MEDS: AMITRIPTYLINE 50 MG TABLET PO SCH (22:44)
[2016-08-01 04:33] LABS: Basophils # 0.1 10*3/uL (0.0-0.2); Basophils % 1.2 % (0.0-0.8); Eosinophils # 0.2 10*3/uL (0.0-0.87); Eosinophils % 3.2 % (0.00-10.9); Hemoglobin 10.7 GM/DL (12.0-16.0); Immature Granulocytes % 0.4 %; Immature Granulocytes Absolute 0.02 #; Lymphocytes # 1.5 10*3/uL (1.4-4.0); Lymphocytes % 30.9 % (21.3-54.2); Mean Corpuscular HGB Conc 32.4 GM/DL (32-36); Mean Corpuscular Hemoglobin 27 PG (27-34); Mean Corpuscular Volume 82.1 FL (87-102); Mean Platelet Volume 11.5 FL (9.6-12.0); Monocytes # 0.6 10*3/uL (0.11-0.8); Neutrophils # 2.7 10*3/uL (1.4-7.4); Neutrophils % 53.3 % (38.7-73.9); Platelet Count 190 T/CUMM (130-400); Red Blood Count 4.02 MC/CUMM (3.8-5.5); Red Cell Distribution Width 14.3 % (9.3-17.3)
[2016-08-01 04:53] LABS: Calcium 8.2 MG/DL (8.5-10.1); Osmolality,Calculated 283.4 MOS/KG (273-304); Potassium 4.1 MMOL/L (3.5-5.1)
--- NOTE | 2016-08-01 08:24 | Discharge Summary ---
Hospital Course - Hospital Course Hospital Course: Patient is 80-year-old female with history of multiple medical problems including coronary artery disease, diabetes, hypertension, peripheral vascular disease, osteomyelitis who was admitted after syncopal episode while at home. Patient was found to be quite orthostatic. She was started on IV fluid for last several days. She had workup done including MRI of brain, echocardiogram, carotid ultrasound. She was seen by neurology. Patient also had a new onset headache which she has attributed to elevated blood pressure. I told her not to take Lasix on a regular basis and decreased the dose to 20 mg 3 times a week if needed. She also had a fall at home and had as of sacral fracture. She was seen in consultation by Dr. Mcneill. Her headache has improved. We have stopped her fluids. She had acute kidney injury secondary to dehydration which has resolved. Her LDL was slightly elevated. It will be addressed as an outpatient. Discussed with patient and her son. Diagnosis - Discharge Diagnosis (1) Syncope and collapse Status: Acute (2) Diabetes Status: Acute (3) Hypertension Status: Acute (4) Peripheral vascular disease Status: Acute (5) Coronary artery disease Status: Acute Specialty Discharge - Follow Up or Referrals Follow up with: Jeferson Dudley MD [Physician] - 2 Weeks Discharge Plan - Discharge Data Disposition: Disch To Home/Self Care Condition at Discharge: Stable Discharge Diet: diabetic diet Activity: resume usual activities as tolerated - Discharge Medications New Furosemide Tab [Lasix Tab] 20 mg PO DAILY #30 tablet Continue Insulin Lispro Prot/Lisp 75/25 [HumaLOG Mix 75/25] 10 unit SUBCUT TID PRN PRN Reason: Glucose Management Aspirin [Ecotrin] 81 mg PO DAILY Losartan Potassium [Cozaar] 100 mg PO DAILY Omeprazole 20 mg PO BID Clopidogrel [Plavix] 75 mg PO DAILY Amitriptyline [Elavil] 50 mg PO BEDTIME Potassium Chloride [Klor-Con M20] 20 meq PO DAILY Magnesium Oxide [Magnesium] 500 mg PO DAILY Discontinued Furosemide Tab [Lasix Tab] 40 mg PO DAILY - Follow Up or Referral Follow Up: Jeferson Dudley MD [Physician] - 2 Weeks - Forms/Instructions Additional Discharge Instructions: Appointment in the office in 2 weeks with CBC a BMP and sed rate Exam - Constitutional Vitals: Period Temp Pulse Resp BP Sys/Cantu Pulse Ox Last 24 Hr 97.9 F-98.6 F 62-98 14-18 110-160/61-93 93-100 Exam: Examination: GENERAL: NAD. HEENT: PERRLA. EOMI. NECK: Neck is supple. CVS: Regular rate and rhythm. S1 and S2 are normal. RESPIRATORY: Lungs are clear. ABDOMEN: Soft and nontender. EXT: No edema POST OFFICE MANAGER: Nonfocal MSK: No obvious deformity. Discharge Results Labs on day of discharge: Labs from last 24 hours 08/01/16 08/01/16 07/31/16 04:01 04:01 21:47 WBC 5.0 RBC 4.02 Hgb 10.7 L Hct 33.0 L MCV 82.1 L MCH 27 MCHC 32.4 RDW 14.3 Plt Count 190 MPV 11.5 Neut % (Auto) 53.3 Lymph % (Auto) 30.9 [place] % (Auto) 11.0 Eos % (Auto) 3.2 Baso % (Auto) 1.2 H Neut # (Auto) 2.7 Lymph # (Auto) 1.5 [place] # (Auto) 0.6 Eos # (Auto) 0.2 Baso # (Auto) 0.1 Immature Gran % 0.4 Nucleated RBC % 0.0 Immature Gran # 0.02 Nucleated RBCs # 0.00 Sodium 140 Potassium 4.1 Chloride 105 Carbon Dioxide 29 Anion Gap 10.1 BUN 17 Creatinine 0.90 GFR Calculation 58 BUN/Creatinine Ratio 18.00 Glucose 145 H POC Glucose 141 H Calculated Osmolality 283.4 Calcium 8.2 L Urine Color Urine Appearance Urine pH Ur Specific [place] Urine Protein Urine Glucose (UA) Urine Ketones Urine Blood Urine Nitrate Urine Bilirubin Urine Urobilinogen Urine Leukocytes Urine WBC Ur Squamous Epith Cells Ur Culture Indicated? 07/31/16 07/31/16 07/31/16 15:39 13:54 04:00 WBC RBC Hgb Hct MCV MCH MCHC RDW Plt Count MPV Neut % (Auto) Lymph % (Auto) [place] % (Auto) Eos % (Auto) Baso % (Auto) Neut # (Auto) Lymph # (Auto) [place] # (Auto) Eos # (Auto) Baso # (Auto) Immature Gran % Nucleated RBC % Immature Gran # Nucleated RBCs # Sodium Potassium Chloride Carbon Dioxide Anion Gap BUN Creatinine GFR Calculation BUN/Creatinine Ratio Glucose POC Glucose 150 H 140 H Calculated Osmolality Calcium Urine Color Straw Urine Appearance Clear Urine pH 5.0 Ur Specific [place] 1.005 Urine Protein Negative Urine Glucose (UA) Negative Urine Ketones Negative Urine Blood Negative Urine Nitrate Negative Urine Bilirubin Negative Urine Urobilinogen < 2.0 H Urine Leukocytes Negative Urine WBC <1 Ur Squamous Epith Cells Occasional Ur Culture Indicated? Not indicated DS: Provider Date of admission: 07/29/16 22:39 Primary care physician: Chandler Ogden MD Attending physician on admission: Chandler Ogden MD Consults: 07/30/16 01:01 Consult to Pharmacy [CONS] Routine Reason for Pharmacy Consult: Adjust Meds Renal Funct 07/31/16 08:46 Consult to Physician [CONS] Routine Comment: Sacral fracture Consulting Provider: Tai Mcneill Jr. Consult to Specialist Group: Orthopedic Person Notified: CHIDI Date Notified: 07/31/16 Time Notified: 08:55 Discharging clinician: Chandler Ogden MD
[2016-08-01] MEDS: INSULIN REGULAR 100 UNIT/ML SUBCUT SCH (08:58)
[2016-08-01] MEDS: FUROSEMIDE 40 MG TABLET PO SCH (08:59)
[2016-08-01] MEDS: DOCUSATE SODIUM 100 MG CAPSULE PO SCH (08:59)
[2016-08-01] MEDS: LOSARTAN 50 MG TABLET PO SCH (08:59)
[2016-08-01] MEDS: ENOXAPARIN 40 MG/0.4 ML SYRINGE SUBCUT SCH (08:59)
[2016-08-01] MEDS: ASPIRIN EC 81 MG TABLET PO SCH (08:59)
[2016-08-01] MEDS: POTASSIUM CHLORIDE 20 MEQ TABLET PO SCH (08:59)
[2016-08-01] MEDS: PANTOPRAZOLE 40 MG TABLET PO SCH (09:00)
[2016-08-01] MEDS: CLOPIDOGREL 75 MG TABLET PO SCH (09:00)
[2016-08-01] MEDS: MAGNESIUM GLUCONATE 500 MG TABLET PO SCH (09:00)
[2016-08-01 09:06] VITALS: BP 134/78
--- NOTE | 2016-08-11 08:17 | Electroencephalogram ---
HISTORY: She is an 80-year-old lady with a history of syncope and her EEG was done on 07/31/16. INTRODUCTION: A digital EEG was performed using the standard 10/20 system of electrode placement wi th one channel of EKG monitoring. Photic stimulation is performed. DESCRIPTION OF RECORD: The background is well organized, consists of 7 to 7.5 Hertz of moderate amp litude bilaterally symmetrical rhythm. Photic stimulation elicits record is remarkable for intermit tent burst of generalized intermix rhythmic delta theta activity lasting somewhere between 5 to 10 s econds. Hyperventilation was not performed. Heart rate 72 beats per minute. IMPRESSION: ABNORMAL EEG DUE TO 1. GENERALIZED SLOWING. 2. BURST OF RHYTHMIC INTERMIX DELTA THETA ACTIVITY. CLINICAL CORRELATION: This record is supportive of [id number] encephalopathy which could be secondary to postictal state, post-hypoxic state, metabolic disorder, diffuse BENDER HELPER insult or increas ed intracranial pressure. Burst of intermix rhythmic delta theta activity is highly suspicious for s eizure activity. Clinical correlation is suggested.
== END 2016-08-01 11:03 | disposition home or self-care (01) | DRG 312 ==
LOC: N.ED 15:32 → N.EDINP 22:39 → N.TELEN 23:35
PROVIDERS: ADMIT Internal Medicine; ATTEND Internal Medicine

== ENCOUNTER 2017-05-30 14:58 | Observation (INO) ==
[2017-05-30 17:40] LABS: Basophils % 0.6 % (0.0-0.8); Eosinophils # 0.1 10*3/uL (0.0-0.87); Eosinophils % 1.4 % (0.00-10.9); Hematocrit 38.2 VOL% (35.7-47.0); Hemoglobin 12.1 GM/DL (12.0-16.0); Immature Granulocytes % 0.5 %; Immature Granulocytes Absolute 0.03 #; Lymphocytes # 1.5 10*3/uL (1.4-4.0); Lymphocytes % 22.9 % (21.3-54.2); Mean Corpuscular HGB Conc 31.7 GM/DL (32-36); Mean Corpuscular Hemoglobin 27 PG (27-34); Mean Corpuscular Volume 83.6 FL (87-102); Monocytes # 0.5 10*3/uL (0.11-0.8); Neutrophils # 4.4 10*3/uL (1.4-7.4); Neutrophils % 66.6 % (38.7-73.9); Platelet Count 228 T/CUMM (130-400); Red Blood Count 4.57 MC/CUMM (3.8-5.5); Red Cell Distribution Width 15.2 % (9.3-17.3); White Blood Count 6.7 T/CUMM (4-12)
[2017-05-30 17:53] LABS: INR 1.1; PT Patient Result 11.4 SECS
[2017-05-30 18:20] LABS: Blood Urea Nitrogen 19 MG/DL (7-18); Glucose 234 MG/DL (74-106); Sodium 136 MMOL/L (136-145); Troponin I Only < 0.015 NG/ML (0.00-0.045)
[2017-05-30 18:22] LABS: Potassium 5.7 MMOL/L (3.5-5.1)
[2017-05-30] MEDS ORDERED: ONDANSETRON 4 MG/2 ML VIAL IV PRN (18:49)
[2017-05-30] MEDS ORDERED: ACETAMINOPHEN 325 MG TABLET PO PRN (18:49)
[2017-05-30 21:22] LABS: Calcium 9.2 MG/DL (8.5-10.1); Osmolality,Calculated 283.4 MOS/KG (273-304); Potassium 4.6 MMOL/L (3.5-5.1)
[2017-05-30 21:26] LABS: Troponin I Only < 0.015 NG/ML (0.00-0.045)
[2017-05-30] MEDS: DOCUSATE SODIUM 100 MG CAPSULE PO SCH (21:32)
[2017-05-30] MEDS: SODIUM CHLORIDE 0.9% 1,000 ML IV SCH (21:33)
[2017-05-31 03:20] LABS: Troponin I Only < 0.015 NG/ML (0.00-0.045)
[2017-05-31] MEDS: SODIUM CHLORIDE 0.9% 1,000 ML IV SCH ×2 (04:50→17:20)
[2017-05-31 04:55] LABS: Calcium 8.1 MG/DL (8.5-10.1); Osmolality,Calculated 287.3 MOS/KG (273-304); Potassium 4.1 MMOL/L (3.5-5.1)
[2017-05-31] MEDS ORDERED: INSULIN LISPRO PROTAMINE/LISPRO 75/25 100 UNIT/ML SUBCUT PRN (07:05)
[2017-05-31 07:30] LABS: Osmolality,Calculated 285.3 MOS/KG (273-304); Potassium 4.3 MMOL/L (3.5-5.1)
[2017-05-31] MEDS ORDERED: OLMESARTAN 20 MG TABLET PO SCH (09:00)
[2017-05-31] MEDS ORDERED: GLUCAGON 1 MG VIAL IM PRN (09:14)
[2017-05-31] MEDS ORDERED: DEXTROSE 50% 25 GM/50 ML VIAL IV PRN (09:14)
[2017-05-31] MEDS: DOCUSATE SODIUM 100 MG CAPSULE PO SCH ×2 (11:15→22:32)
[2017-05-31] MEDS: ROSUVASTATIN 10 MG TABLET PO SCH (11:15)
[2017-05-31] MEDS: CLOPIDOGREL 75 MG TABLET PO SCH (11:15)
[2017-05-31] MEDS: ASPIRIN EC 81 MG TABLET PO SCH (11:15)
[2017-05-31] MEDS: PANTOPRAZOLE 40 MG TABLET PO SCH (11:16)
[2017-05-31] MEDS: OXcarbazepine 300 MG TABLET PO SCH ×2 (11:16→22:31)
[2017-05-31] MEDS: INSULIN REGULAR 100 UNIT/ML SUBCUT SCH ×3 (12:46→22:32)
[2017-05-31] MEDS: INSULIN LISPRO PROTAMINE/LISPRO 75/25 100 UNIT/ML SUBCUT SCH (17:16)
[2017-05-31] MEDS ORDERED: AMITRIPTYLINE 25 MG TABLET PO SCH (21:00)
[2017-06-01] MEDS: INSULIN REGULAR 100 UNIT/ML SUBCUT SCH ×2 (07:20→12:56)
[2017-06-01] MEDS: INSULIN LISPRO PROTAMINE/LISPRO 75/25 100 UNIT/ML SUBCUT SCH (07:20)
[2017-06-01] MEDS ORDERED: OLMESARTAN 20 MG TABLET PO SCH (09:00)
[2017-06-01] MEDS ORDERED: FUROSEMIDE 40 MG TABLET PO PRN (09:00)
[2017-06-01] MEDS: DOCUSATE SODIUM 100 MG CAPSULE PO SCH (09:47)
[2017-06-01] MEDS: OXcarbazepine 300 MG TABLET PO SCH (09:47)
[2017-06-01] MEDS: ASPIRIN EC 81 MG TABLET PO SCH (09:47)
[2017-06-01] MEDS: ROSUVASTATIN 10 MG TABLET PO SCH (09:48)
[2017-06-01] MEDS: CLOPIDOGREL 75 MG TABLET PO SCH (09:48)
[2017-06-01] MEDS: PANTOPRAZOLE 40 MG TABLET PO SCH (09:48)
[2017-06-01 15:18] VITALS: BP 123/70
[2017-06-02] MEDS ORDERED: MAGNESIUM OXIDE 500 MG PO SCH (09:00)
== END 2017-06-01 13:25 | disposition home or self-care (01) ==
LOC: N.EDINP 14:58 → N.ED 14:58 → N.2E 20:10
PROVIDERS: ADMIT Family Medicine; ATTEND Family Medicine

== ENCOUNTER 2018-02-04 13:07 | Inpatient (IN) ==
[2018-02-04] MEDS ORDERED: ONDANSETRON 4 MG/2 ML VIAL IV PRN ×2 (13:28→16:42)
[2018-02-04 14:16] LABS: Basophils # 0.1 10*3/uL (0.0-0.2); Basophils % 1.1 % (0.0-0.8); Eosinophils # 0.2 10*3/uL (0.0-0.87); Eosinophils % 3.4 % (0.00-10.9); Hematocrit 39.6 VOL% (35.7-47.0); Hemoglobin 12.4 GM/DL (12.0-16.0); Immature Granulocytes % 0.6 %; Immature Granulocytes Absolute 0.04 #; Lymphocytes # 1.9 10*3/uL (1.4-4.0); Lymphocytes % 28.9 % (21.3-54.2); Mean Corpuscular HGB Conc 31.3 GM/DL (32-36); Mean Corpuscular Hemoglobin 27 PG (27-34); Mean Platelet Volume 11.3 FL (9.6-12.0); Monocytes # 0.5 10*3/uL (0.11-0.8); Monocytes % 7.6 % (1.7-12.7); Neutrophils # 3.7 10*3/uL (1.4-7.4); Neutrophils % 58.4 % (38.7-73.9); Platelet Count 223 T/CUMM (130-400); Red Blood Count 4.66 MC/CUMM (3.8-5.5); White Blood Count 6.4 T/CUMM (4-12)
[2018-02-04 14:26] LABS: PT Patient Result 10.7 SECS; Partial Thromboplastin Time 26.6 SECS (0-40)
[2018-02-04 14:32] LABS: Apearance,Urine CLEAR (Clear); Bilirubin,Urine Negative (Negative); Blood, Urine Negative (Negative); Glucose,Urine (UA) Negative (Negative); Ketones,Urine Negative (Negative); Mucus,Urine Occasional /LPF (Occasional); Nitrite,Urine Negative (Negative); Protein,Urine Negative; RBC,Urine <1 /HPF (0-4); Squamous Epithelial Cell,Urine Occasional /HPF (0-10); Urine Color Straw (Yellow); Urine Specific Gravity 1.005 (1.001-1.035); Urine Urobilinogen < 2.0 EU/DL (0.2-1.0)
[2018-02-04 14:35] LABS: Alanine Aminotransferase 20 U/L (13-56); Albumin 3.8 G/DL (3.4-5.0); Alkaline Phosphatase 152 U/L (45-117); Aspartate Amino Transferase 23 U/L (0-37); Blood Urea Nitrogen 14 MG/DL (7-18); Calcium 9.1 MG/DL (8.5-10.1); Glucose 130 MG/DL (74-106); Osmolality,Calculated 283.3 MOS/KG (273-304); Potassium 3.9 MMOL/L (3.5-5.1); Sodium 141 MMOL/L (136-145); Total Protein 7.2 G/DL (6.4-8.3)
[2018-02-04 14:46] LABS: Barbiturates Screen,Urine Negative (Negative); Benzodiazepines Screen,Urine Negative (Negative); Cannabinoid Screen,Urine Negative (Negative); Opiate Screen,Urine Negative (Negative); Phencyclidine Screen,Urine Negative (Negative)
[2018-02-04] MEDS ORDERED: INFLUENZA VIRUS VACCINE 0.5 ML SYRINGE IM ONE (16:30)
[2018-02-04] MEDS ORDERED: ACETAMINOPHEN 325 MG TABLET PO PRN (16:42)
[2018-02-04] MEDS ORDERED: DEXTROSE 50% 25 GM/50 ML VIAL IV PRN (17:30)
[2018-02-04] MEDS ORDERED: GLUCAGON 1 MG VIAL IM PRN (17:30)
[2018-02-04] MEDS ORDERED: INSULIN LISPRO PROTAMINE/LISPRO 75/25 100 UNIT/ML SUBCUT PRN (17:30)
[2018-02-04] MEDS ORDERED: FUROSEMIDE 20 MG TABLET PO PRN (17:30)
[2018-02-04] MEDS: SODIUM CHLORIDE 0.9% 1,000 ML IV SCH (17:50)
[2018-02-04] MEDS: PANTOPRAZOLE 40 MG TABLET PO SCH (20:38)
[2018-02-04] MEDS: ROSUVASTATIN 10 MG TABLET PO SCH (20:38)
[2018-02-04] MEDS: DOCUSATE SODIUM 100 MG CAPSULE PO SCH (20:38)
[2018-02-04] MEDS: OXcarbazepine 300 MG TABLET PO SCH (20:39)
[2018-02-04] MEDS: AMITRIPTYLINE 50 MG TABLET PO SCH (20:39)
[2018-02-04] MEDS: INSULIN LISPRO 100 UNIT/ML SUBCUT SCH (20:41)
[2018-02-05 05:15] LABS: Basophils # 0.1 10*3/uL (0.0-0.2); Eosinophils # 0.2 10*3/uL (0.0-0.87); Eosinophils % 4.9 % (0.00-10.9); Hematocrit 35.4 VOL% (35.7-47.0); Hemoglobin 11.2 GM/DL (12.0-16.0); Immature Granulocytes % 0.4 %; Immature Granulocytes Absolute 0.02 #; Lymphocytes # 1.6 10*3/uL (1.4-4.0); Lymphocytes % 32.4 % (21.3-54.2); Mean Corpuscular HGB Conc 31.6 GM/DL (32-36); Mean Corpuscular Hemoglobin 26 PG (27-34); Mean Corpuscular Volume 83.3 FL (87-102); Mean Platelet Volume 11.2 FL (9.6-12.0); Monocytes # 0.4 10*3/uL (0.11-0.8); Neutrophils # 2.5 10*3/uL (1.4-7.4); Neutrophils % 52.3 % (38.7-73.9); Platelet Count 203 T/CUMM (130-400); Red Blood Count 4.25 MC/CUMM (3.8-5.5); Red Cell Distribution Width 15.9 % (9.3-17.3); White Blood Count 4.9 T/CUMM (4-12)
[2018-02-05 05:28] LABS: Osmolality,Calculated 278.5 MOS/KG (273-304); Potassium 4.1 MMOL/L (3.5-5.1)
[2018-02-05] MEDS: INSULIN LISPRO 100 UNIT/ML SUBCUT SCH ×4 (07:18→20:13)
[2018-02-05] MEDS ORDERED: PANTOPRAZOLE 40 MG TABLET PO SCH (09:00)
[2018-02-05] MEDS: POTASSIUM CHLORIDE 20 MEQ TABLET PO SCH (11:19)
[2018-02-05] MEDS: ASPIRIN EC 81 MG TABLET PO SCH (11:19)
[2018-02-05] MEDS: PANTOPRAZOLE 40 MG TABLET PO SCH ×2 (11:20→20:11)
[2018-02-05] MEDS: OLMESARTAN 20 MG TABLET PO SCH (11:20)
[2018-02-05] MEDS: OXcarbazepine 300 MG TABLET PO SCH ×2 (11:21→20:12)
[2018-02-05] MEDS: DOCUSATE SODIUM 100 MG CAPSULE PO SCH ×2 (11:21→20:12)
[2018-02-05] MEDS: CLOPIDOGREL 75 MG TABLET PO SCH (11:21)
[2018-02-05] MEDS: SODIUM CHLORIDE 0.9% 1,000 ML IV SCH (15:49)
[2018-02-05] MEDS: ROSUVASTATIN 10 MG TABLET PO SCH (20:11)
[2018-02-05] MEDS: AMITRIPTYLINE 50 MG TABLET PO SCH (20:12)
[2018-02-06 07:52] VITALS: BP 155/72
[2018-02-06] MEDS: INSULIN LISPRO 100 UNIT/ML SUBCUT SCH (08:50)
[2018-02-06] MEDS: OLMESARTAN 20 MG TABLET PO SCH (08:51)
[2018-02-06] MEDS: OXcarbazepine 300 MG TABLET PO SCH (08:51)
[2018-02-06] MEDS: POTASSIUM CHLORIDE 20 MEQ TABLET PO SCH (08:52)
[2018-02-06] MEDS: CLOPIDOGREL 75 MG TABLET PO SCH (08:52)
[2018-02-06] MEDS: ASPIRIN EC 81 MG TABLET PO SCH (08:52)
[2018-02-06] MEDS: PANTOPRAZOLE 40 MG TABLET PO SCH (08:52)
[2018-02-06] MEDS: DOCUSATE SODIUM 100 MG CAPSULE PO SCH (08:52)
[2018-02-06] MEDS: SODIUM CHLORIDE 0.9% 1,000 ML IV SCH (09:07)
== END 2018-02-06 10:13 | disposition home or self-care (01) | DRG 69 ==
LOC: N.ED 13:07 → N.EDINP 15:06 → N.2W 15:52 → N.TELES 17:27
PROVIDERS: ADMIT Internal Medicine; ATTEND Internal Medicine